=== PATIENT | male | born 1990 | race Caucasian/White ===

== ENCOUNTER 2017-02-24 13:31 | Emergency (ER) | payer MEDICAID ==
[2017-02-24 15:17] LABS: BLOOD UREA NITROGEN 13 mg/dL (9-20); CALCIUM 9.2 mg/dL (8.4-10.2); CHLORIDE 101 mmol/L (98-107); CREATININE 0.8 mg/dL (0.7-1.3); EST GLOMERULAR FILTRATION RATE > 60 mL/min; GLUCOSE 81 mg/dL (70-100); POTASSIUM 4.1 mmol/L (3.5-5.1); SODIUM 143 mmol/L (137-145)
--- NOTE | 2017-02-24 17:41 | ER NURSING DOCUMENTATION ---
Nurse's Notes [facility] Name:Berto Marquez Age:26 yrs Sex:Male :1990 Arrival Date:02/24/2017 Time:13:31 Bed2 Private MD: Diagnosis:Optic Neuritis, Unspecified Presentation: 02/24 13:41 Presenting complaint: Patient states: pt states he had some sharp pain behind his right st eye a few days ago since then he has seen "TV static" in front of the vision of that eye and had pressure behind that eye. Transition of care: Home. Mechanism of Injury: No Mechanism of Injury. The patient denies any loss of vision. 13:41 Acuity: JER 3 st 13:41 Method Of Arrival: Private Vehicle st Triage Assessment: 13:47 General: Appears in no apparent distress, Behavior is cooperative. Pain: Complains of st pain in behind the right eye Pain currently is 3 out of 10 on a pain scale. Quality of pain is described as pressure Pain began 2-3 days ago. EENT: Eyes eyes appear normal on exam.. Neuro: No deficits noted. Cardiovascular: No deficits noted. Respiratory: No deficits noted. GI: No deficits noted. Historical: - Allergies: Amoxicillin; Codeine; - Home Meds: 1. None - PMHx: epilpsy; - Tetanus: < 10 years. - Ebola Screening: : Patient denies exposure to infectious person. Patient denies travel to an Ebola-affected area in the 21 days before illness onset. . - Social history: Smoking status: Patient states was never smoker of tobacco. Patient uses alcohol Patient/guardian denies using marijuana. Screenin:51 Infectious Disease Risk None. Abuse screen: Denies threats or abuse. Denies injuries st from another. Nutritional screening: No deficits noted. Assessment: 17:23 General: pt resting quietly. Pt states that his symptoms are about the same. . st Vital Signs: 13:50 Pulse 74; Resp 16; Temp 97.7; Pulse Ox 95% on R/A; Pain 3/10; st 17:23 BP 104 / 70; Pulse 69; Pulse Ox 93% on R/A; st Visual Acuity: 13:51 Left Eye Visual acuity 20/20, ; Right Eye Visual acuity 20/20, ; Both Eyes Visual st acuity 20/20; Without Lenses; ED Course: 13:33 Patient arrived in ED. ama 13:34 Minh Campo MD is Attending Physician. al 13:41 Maryan Griffin RN is Primary Nurse. st 13:[address] 13:51 Valuables Remains with patient Bed in low position. st 14:58 Inserted peripheral IV: 20 gauge in right antecubital area and blood collected. st 15:45 Patient moved to MRI. ms 17:10 Patient moved back from [facility]. ms Administered Medications: No medications were administered Outcome: 17:31 Discharge ordered by . al 17:40 Discharged to home ambulatory. st 17:40 Condition: stable 17:40 Discharge instructions given to patient, Instructed on discharge instructions, follow up and referral plans. 17:40 IV D/Chace 17:40 Patient [address] the ED. st 06/04 17:07 Discharge F/U Call: Unable to reach: left voicemail: [email or web address] Signatures: Maryan Griffin RN RN st Chew, Scott, MD MD sc Strickland, Mary ms Averdick, Andrew, Reg Reg Karely Sanchez mk4
--- NOTE | 2017-02-24 17:41 | ER PHYSICIAN DOCUMENTATION ---
Physician Documentation [facility] Name:Berto Marquez Age:26 yrs Sex:Male :1990 Arrival Date:02/24/2017 Time:13:31 Bed2 Private MD: Minh Martinez Disposition: 02/24/17 17:31 Discharged to Home/Self Care. Impression: Optic Neuritis, Unspecified. - Condition is Good. - Medical Reconciliation form form. - Follow up: Private Physician; When: 1 week; Reason: Recheck today's complaints. - Problem is new. - Symptoms are unchanged. HPI: 02/24 17:26 This 26 yrs old Male presents to ER via Private Vehicle with complaints of sc Eye Pain - RIGHT. 17:26 The patient is experiencing blurred vision, decreased vision, pain, to the right eye, sc caused by an unknown mechanism. Onset: The symptom(s)/episode began/occurred 3 day(s) ago. Duration: the symptoms are continuous. Aggravated by blinking, light, pressure, Alleviated by nothing. Associated signs and symptoms: Pertinent negatives: chills, fever, headache. Patient none. Severity of symptoms: At their worst the symptoms were moderate in the emergency department the symptoms are unchanged. The patient has not experienced similar symptoms in the past. Historical: - Allergies: Amoxicillin; Codeine; - Home Meds: 1. None - PMHx: epilpsy; - Tetanus: < 10 years. - Ebola Screening: : Patient denies exposure to infectious person. Patient denies travel to an Ebola-affected area in the 21 days before illness onset. . - Social history: Smoking status: Patient states was never smoker of tobacco. Patient uses alcohol Patient/guardian denies using marijuana. ROS: 17:27 Constitutional: Negative for fever, chills, and weight loss. sc ENT: Negative for injury, pain, and discharge. Neck: Negative for injury, pain, and swelling. Cardiovascular: Negative for chest pain, palpitations, and edema. Respiratory: Negative for shortness of breath, cough, wheezing, and pleuritic chest pain. Abdomen/GI: Negative for abdominal pain, nausea, vomiting, diarrhea, and constipation. Back: Negative for injury and pain. MS/Extremity: Negative for injury and deformity. Skin: Negative for injury, rash, and discoloration. 17:27 Neuro: Negative for headache, weakness, numbness, tingling, and seizure. sc 17:27 Eyes: Positive for blurry vision, pain, photophobia, visual disturbance. Exam: 17:27 Visual Acuity: I have reviewed the nursing documentation. ks Constitutional: This is a well developed, well nourished patient who is awake, alert, and in no acute distress. Head/Face: Normocephalic, atraumatic. ENT: Nares patent. No nasal discharge, no septal abnormalities noted. Tympanic membranes are normal and external auditory canals are clear. Oropharynx with no redness, swelling, or masses, exudates, or evidence of obstruction, uvula midline. Mucous membranes moist. Neck: Trachea midline, no thyromegaly or masses palpated, and no cervical lymphadenopathy. Supple, full range of motion without nuchal rigidity, or vertebral point tenderness. No meningismus. Chest/axilla: Normal chest wall appearance and motion. Nontender with no deformity. No lesions are appreciated. Cardiovascular: Regular rate and rhythm with a normal S1 and S2. No gallops, murmurs, or rubs. Normal PMI, no JVD. No pulse deficits. Respiratory: Lungs have equal breath sounds bilaterally, clear to auscultation and percussion. No rales, rhonchi or wheezes noted. No increased work of breathing, no retractions or nasal flaring. Back: No spinal tenderness. No costovertebral tenderness. Full range of motion. 17:27 Skin: Warm, dry with normal turgor. Normal color with no rashes, no lesions, and no evidence of cellulitis. 17:27 Eyes: Periorbital structures: appear normal, Pupils: equal, round, and reactive to light and accomodation, Extraocular movements: intact throughout, Conjunctiva: normal, Corneas: are normal, Anterior chamber: normal, funduscopic exam reveals no obvious abnormalities, Nystagmus: is not appreciated, Intraocular pressure: is normal, right eye = 10mmHg, left eye = 10mmHg. Vital Signs: 13:50 Pulse 74; Resp 16; Temp 97.7; Pulse Ox 95% on R/A; Pain 3/10; st 17:23 BP 104 / 70; Pulse 69; Pulse Ox 93% on R/A; st Visual Acuity: 13:51 Left Eye Visual acuity 20/20, ; Right Eye Visual acuity 20/20, ; Both Eyes Visual st acuity 20/20; Without Lenses; MDM: 13:34 Patient medically screened. ks 17:28 Differential diagnosis: Acute iritis of Acute glaucoma in ?optic neuritis, info sheet sc printed for patient. Data reviewed: vital signs, nurses notes, radiologic studies, MRI, and as a result, I will discharge patient. Counseling: I had a detailed discussion with the patient and/or guardian regarding: the historical points, exam findings, and any diagnostic results supporting the discharge/admit diagnosis, the need for outpatient follow up, for a recheck, of today's symptoms. 02/24 15:19 Order name: BASIC METABOLIC PANEL; Complete Time: 17:21 [facility] 02/24 17:21 Interpretation: Normal. ks 02/26 07:30 Order name: BRAIN W/WO CONTRAST [id number] [facility] 02/24 14:58 Order name: Iv Saline Lock; Complete Time: 14:59 st Dispensed Medications: No medications were administered Signatures: Maryan Griffin RN RN st Chew, Scott, MD MD ks
--- NOTE | 2017-02-26 07:29 | MRI REPORT ---
HISTORY: Possible optic neuritis, multiple sclerosis, right eye pain COMPARISON: None. TECHNIQUE: Multiplanar multi sequential imaging of the brain obtained with and without IV gadolinium. FINDINGS: BRAIN: There is no atrophy. The brain parenchyma is normal in signal intensity. There is no diffusion res triction. There is no hemorrhage. There is no hydrocephalus. There is no mass effect or midline s hift. The major intracranial flow-voids are present. There is no abnormal parenchymal enhancement . BONES AND EXTRACRANIAL SOFT TISSUES: Dedicated orbital protocol was not performed, which would be a more sensitive exam. Within these limi tations visualized globes and orbits are unremarkable. No abnormal enhancement of the optic nerve charlie ntified. The paranasal sinuses and mastoid air cells are clear. No gross bone lesion is identified. IMPRESSION: Unremarkable brain MRI. Final Electronic Signature: This report was electronically signed by Evgeny Zimmerman MD on 02/26/2017 7:26 AM. sugar /
== END 2017-02-24 17:41 | disposition home or self-care (01) ==
LOC: ER 13:31
DX: H46.9 Unspecified optic neuritis (principal)
CPT/HCPCS: 70553; 80048; 99284